=== PATIENT | male | born 1945 | race Caucasian/White ===

== ENCOUNTER 2021-04-17 18:03 | Inpatient (IN) | payer MEDICARE, BC ==
[~2021-04-17] VITALS: Ht 198.1 cm; Wt 64.4 kg
[2021-04-17] MEDS ORDERED: FAMO-132 PO (18:19)
[2021-04-17] MEDS ORDERED: CLON0.1T PO (18:19)
[2021-04-17] MEDS ORDERED: MIRT-93 PO (18:19)
[2021-04-17] MEDS ORDERED: DIVA125C2 PO (18:19)
[2021-04-17] MEDS ORDERED: TAMS-3 PO (18:19)
[2021-04-17] MEDS ORDERED: ENOX40DI SQ (18:19)
[2021-04-17] MEDS ORDERED: ZIPR20CA2 IM (18:19)
[2021-04-17] MEDS ORDERED: HYDR8TAB2 PO (18:19)
[2021-04-17] MEDS ORDERED: HYDR4TAB4 PO (18:19)
[2021-04-17] MEDS ORDERED: OLAN10TA3 PO (18:19)
--- NOTE | 2021-04-17 19:00 | NUR ---
Patient was seen bt . Lisandroails up x4. patient is confused
--- NOTE | 2021-04-17 19:19 | NUR ---
hand off report given to yousif PARADA
[2021-04-17] MEDS ORDERED: ZIPRASIDONE MESYLATE 20 MG VIAL IM ONE ×2 (19:45→19:59)
[2021-04-17] MEDS ORDERED: diphenhydrAMINE 50 MG/1 ML VIAL IM ONE (19:45)
[2021-04-17] MEDS ORDERED: diphenhydrAMINE 50 MG/1 ML VIAL ONE (19:59)
[2021-04-17 20:05] LABS: HEMATOCRIT 38.7 % (36.7-47.1); MEAN CORPUSCULAR HEMOGLOBIN 30.6 uug (23.8-33.4); MEAN CORPUSCULAR VOLUME 87.5 fL (73.0-96.2); PLATELET COUNT (AUTO) 177 K/uL (152-348)
[2021-04-17 20:09] LABS: CREATININE 0.8 mg/dL (0.6-1.3); POTASSIUM 3.3 mmol/L (3.5-5.1)
[2021-04-17 20:23] LABS: THYROID STIMULATING HORMONE 0.647 mIU/mL (0.358-3.740)
[2021-04-17 21:03] LABS: *BILIRUBIN,URIN 1+ (NEGATIVE); *BLOOD, URINE 1+ (NEGATIVE); *CLARITY,URINE CLEAR (CLEAR); *COLOR,URINE YELLOW (YELLOW); *KETONES,URINE 1+ (NEGATIVE); LEUKOCYTE ESTERASE ,URINE NEGATIVE (NEGATIVE); NITRITE, URINE POSITIVE (NEGATIVE); UGLUCOSE NEGATIVE (NEGATIVE)
--- NOTE | 2021-04-17 21:51 | NUR ---
Pt medically cleared by Dr. Craig.
--- NOTE | 2021-04-17 21:55 | NUR ---
Called Jimena Chaney [facility] for pt psych evaluation.
[2021-04-17 22:52] LABS: BACTERIA,URINE MANY /HPF (NONE SEEN); RBC,URINE 0-3 /HPF (0-3); SQUAMOUS EPITHELIAL CELL,UR NONE SEEN /HPF (NONE SEEN)
--- NOTE | 2021-04-17 23:00 | NUR ---
Jimena Chaney LCSW arrived to ER for pt psych evaluation.
--- NOTE | 2021-04-18 01:19 | NUR ---
Report given to Juliette PARADA M[facility].
[2021-04-18] MEDS ORDERED: CEFTRIAXONE 1 G VIAL IM ONE (02:00)
[2021-04-18] MEDS ORDERED: HALOPERIDOL LACTATE 5 MG/1 ML VIAL IM ONE (02:00)
[2021-04-18] MEDS ORDERED: diphenhydrAMINE 50 MG/1 ML VIAL IM ONE (02:00)
[2021-04-18] MEDS ORDERED: CEFTRIAXONE 1 G VIAL ONE (02:04)
[2021-04-18] MEDS ORDERED: HALOPERIDOL LACTATE 5 MG/1 ML VIAL ONE (02:04)
[2021-04-18] MEDS ORDERED: diphenhydrAMINE 50 MG/1 ML VIAL ONE (02:05)
[2021-04-18] MEDS ORDERED: LIDOCAINE HCL 1% 20 ML VIAL ONE (02:05)
[2021-04-18 02:50] VITALS: BP 143/72
[2021-04-18] MEDS ORDERED: MAG HYDROX/AL HYDROX/SIMETH 30 ML LIQUID UDC PO PRN (03:30)
[2021-04-18] MEDS ORDERED: BLOOD SUGAR DIAGNOSTIC 1 EACH STRIP VI ONE (03:30)
[2021-04-18] MEDS ORDERED: TEMAZEPAM 7.5 MG CAPSULE PO PRN (03:30)
[2021-04-18] MEDS ORDERED: CLONIDINE HCL 0.1 MG TABLET PO PRN (04:15)
--- NOTE | 2021-04-18 04:27 | NUR ---
GPS ADMISSION NOTE: Patient is a 76 year old patient , brought into the ER from [facility]. According to the patients daughter and the 5150 hold, this patient has been aggressive and hit his . Patient has been refusing medications, food and fluids at home. Upon face to face evaluation, the patient is unable to respond to staff. Poor eye contact, poor impulse control and obvious visual hallucinations . The patient has a temp of 99.1. The other VS are stable. Skin intact, turned and repositioned for comfort. Oral fluids offered , but patient refused. Safety stratiges in place. Monitoring for behavior escalation at this time. Noted that the patient is positive for a urine infection and received antibiotic IM in the ER.
[2021-04-18] MEDS: ACETAMINOPHEN 325 MG TABLET PO PRN (06:48)
--- NOTE | 2021-04-18 06:56 | NUR ---
Patients temp remained 99.0 despite cooling measures. Tylenol given crushed. Patient reluctant but took the medication with encouragement. Will continue to monitor.
[2021-04-18 08:00] VITALS: BP 99/61
--- NOTE | 2021-04-18 08:00 | NUR ---
recd patient in bed trying to get out , patient transfered to devika chair with 2 assist for safety, patient is deaf speaks farsi and confused refusing meds after crushed in applesauce as stated by daughter thats how he takes pills. patient very restless and has to be secured in devika chair constantly twitching throwing pillows and bath blankets .CONtinue to monitor for safety
[2021-04-18] MEDS ORDERED: TAMSULOSIN HCL 0.4 MG CAP.SR.24H PO SCH (09:00)
[2021-04-18] MEDS: OLANZAPINE 5 MG TABLET PO SCH ×2 (12:06→17:32)
[2021-04-18] MEDS: busPIRone 5 MG TABLET PO SCH ×3 (12:07→21:00)
[2021-04-18] MEDS: DIVALPROEX SPRINKLE 125 MG CAP.SPRINK PO SCH ×2 (17:31→21:00)
[2021-04-18 17:50] VITALS: BP 117/76
--- NOTE | 2021-04-18 17:55 | NUR ---
patients son brought in food from home to try help patient eat which patient ate more than he did all shift with family assist,, assisted as need with adls and safety patient remains anxious and restless
[2021-04-18 20:14] VITALS: BP 109/68
[2021-04-18] MEDS: TAMSULOSIN HCL 0.4 MG CAP.SR.24H PO SCH (21:00)
[2021-04-18] MEDS: OLANZAPINE 2.5 MG TABLET PO SCH (21:00)
[2021-04-18] MEDS: CEphaleXIN 500 MG CAPSULE PO SCH (21:52)
[2021-04-19] MEDS: CEphaleXIN 500 MG CAPSULE PO SCH ×3 (05:55→21:20)
--- NOTE | 2021-04-19 06:23 | NUR ---
GPS: REMAIN UNCOOPERATIVE WITH CARE. UNABLE TO AMBULATE.ASSISTED WITH ADL'S.REFUSED ALL HS PO MEDS.BUT TOOK AM PO ATB.ENCOURAGED PO INTAKE. SLEPT 3.45 HRS THROUGH THE MEDS. CONTINUE MONITOR FOR SAFETY.
[2021-04-19 08:11] LABS: HEMATOCRIT 37.7 % (36.7-47.1); MEAN CORPUSCULAR HEMOGLOBIN 30.7 uug (23.8-33.4); MEAN CORPUSCULAR VOLUME 87.8 fL (73.0-96.2); PLATELET COUNT (AUTO) 206 K/uL (152-348)
[2021-04-19] MEDS: DIVALPROEX SPRINKLE 125 MG CAP.SPRINK PO SCH ×3 (08:12→20:44)
[2021-04-19] MEDS: busPIRone 5 MG TABLET PO SCH ×3 (08:13→20:47)
[2021-04-19] MEDS: OLANZAPINE 5 MG TABLET PO SCH ×3 (08:13→17:20)
[2021-04-19 08:43] LABS: CREATININE 0.7 mg/dL (0.6-1.3)
[2021-04-19 08:48] LABS: CREATININE 0.7 mg/dL (0.6-1.3); MAGNESIUM 2.4 mg/dL (1.8-2.4); PHOSPHOROUS 3.6 mg/dL (2.5-4.9); POTASSIUM 3.4 mmol/L (3.5-5.1)
[2021-04-19 09:22] LABS: THYROID STIMULATING HORMONE 0.813 mIU/mL (0.358-3.740)
[2021-04-19] MEDS ORDERED: POTASSIUM CHLORIDE 20 MEQ TAB.PRT.SR PO ONE (10:30)
[2021-04-19] MEDS: ENSURE ENLIVE (VAN) 240 ML LIQUID PO SCH ×2 (13:14→18:22)
--- NOTE | 2021-04-19 16:31 | NUR ---
Received patient sleeping in his room. A/O X 1 to person. Pt. affect is confused, withdrawn, calm. Compliant with medications this morning. Ambulates with assistance, unsteady gait, lower extremities weakness. Reality orientation provided. Fall and safety precautions implemented.
[2021-04-19 18:45] VITALS: BP 104/61
[2021-04-19 20:00] VITALS: BP 115/55
[2021-04-19] MEDS: OLANZAPINE 2.5 MG TABLET PO SCH (20:43)
[2021-04-19] MEDS: TAMSULOSIN HCL 0.4 MG CAP.SR.24H PO SCH (20:44)
[2021-04-20] MEDS: CEphaleXIN 500 MG CAPSULE PO SCH ×3 (06:29→21:59)
[2021-04-20] MEDS: OLANZAPINE 5 MG TABLET PO SCH ×3 (09:00→16:52)
[2021-04-20] MEDS: ENSURE ENLIVE (VAN) 240 ML LIQUID PO SCH ×3 (09:00→17:42)
--- NOTE | 2021-04-20 11:35 | NUR ---
MYNOR Initial Discharge Plan: Pt currently resides at [address] [place] [address] with his , Meño. Per Jaelyn (DP) ([phone]), family is working with a certified senior media director (Osmel Yun [phone]) to also help with pt's discharge plan. Jaelyn asked SW to also find additional nursing facilities that will work for pt as pt cannot return back to his residence according to Jaelyn. MYNOR will continue to work with pt, family and MD to ensure a safe and proper discharge plan for the pt.
--- NOTE | 2021-04-20 11:36 | NUR ---
SW Admit Source: Pt currently resides at [address] [place] [address] with his , Meño. Per 5[address] hold, pt was brought to [facility] by ambulance from [facility] on 04/18/21 due to agitation and confusion. Per pt's daughter, Jaelyn (DPOA) ([phone]), family is working with a certified senior web developer (Osmel Yun [phone]) to also help with pt's discharge plan. Jaelyn asked SW to also find additional nursing facilities that will work for pt as pt cannot return back to his residence according to Jaelyn. MYNOR will continue to work with pt, family and MD to ensure a safe and proper discharge plan for the pt.
[2021-04-20 11:41] LABS: CREATININE 0.6 mg/dL (0.6-1.3); POTASSIUM 3.8 mmol/L (3.5-5.1)
--- NOTE | 2021-04-20 11:47 | NUR ---
Firearms Report: Health Records Technology Teacher completed and submitted a [employer] firearms report for 5150 a danger to others and gravely disabled adult certifications. A copy of report has been placed in patient chart.
--- NOTE | 2021-04-20 14:45 | NUR ---
Received patient sleeping in his room. A/O X 1 to person. Pt. affect is calm, cooperative, sociable, anxious at times. Refused medications this morning. Requires more than minimal assistance with ADL. Lower extremities weakness, unsteady gait. Fall and safety precautions implemented.
[2021-04-20 16:27] VITALS: BP 127/64
[2021-04-20 16:28] VITALS: BP 103/68
[2021-04-20] MEDS: DIVALPROEX SPRINKLE 125 MG CAP.SPRINK PO SCH ×2 (16:52→20:11)
[2021-04-20] MEDS: busPIRone 5 MG TABLET PO SCH ×2 (16:52→20:11)
[2021-04-20 20:00] VITALS: BP 110/58
[2021-04-20] MEDS: OLANZAPINE 2.5 MG TABLET PO SCH (20:12)
[2021-04-20] MEDS: TAMSULOSIN HCL 0.4 MG CAP.SR.24H PO SCH (20:23)
[2021-04-21] MEDS: CEphaleXIN 500 MG CAPSULE PO SCH ×3 (06:46→21:51)
[2021-04-21] MEDS: OLANZAPINE 5 MG TABLET PO SCH ×3 (09:17→17:21)
[2021-04-21] MEDS: busPIRone 5 MG TABLET PO SCH ×3 (09:17→21:50)
[2021-04-21] MEDS: DIVALPROEX SPRINKLE 125 MG CAP.SPRINK PO SCH ×3 (09:17→21:50)
[2021-04-21] MEDS: ENSURE ENLIVE (VAN) 240 ML LIQUID PO SCH ×3 (09:17→17:21)
--- NOTE | 2021-04-21 17:48 | NUR ---
GPS: PT ON ROXANNE-CHAIR FOR SAFETY. PT OBSERVED ABLE TO EAT independently AT DINNER TIME. PARTICIPATED WITH GROUP THERAPY. DENIES ANY PAIN OR DISCOMFORT. PT RESISTIVE TO CARE. COMPLIANT WITH MEDICATION. SON CAME TO ENCOURAGE PT ABOUT EATING WELL AND HAVE A GOOD EXERCISE. SON'S INQUIRY ANSWERED. SON MADE LANGUAGE TRANSLATION FOR PT ON A PAPER TO READ FOR EASY COMMUNICATION. WILL MONITOR PT.
[2021-04-21 19:52] VITALS: BP 147/79
[2021-04-21] MEDS ORDERED: OLANZAPINE 5 MG TABLET PO SCH (21:00)
[2021-04-21] MEDS: TAMSULOSIN HCL 0.4 MG CAP.SR.24H PO SCH (21:51)
[2021-04-22] MEDS: CEphaleXIN 500 MG CAPSULE PO SCH ×3 (06:00→21:15)
[2021-04-22 07:30] VITALS: BP 145/67
[2021-04-22 07:45] LABS: HEMATOCRIT 35.7 % (36.7-47.1); MEAN CORPUSCULAR HEMOGLOBIN 30.6 uug (23.8-33.4); MEAN CORPUSCULAR VOLUME 88.8 fL (73.0-96.2); PLATELET COUNT (AUTO) 260 K/uL (152-348)
[2021-04-22 07:59] LABS: BILIRUBIN,TOTAL 0.6 mg/dL (0.2-1.0); CREATININE 0.7 mg/dL (0.6-1.3); POTASSIUM 4.1 mmol/L (3.5-5.1); TOTAL PROTEIN, SERUM 6.1 g/dL (6.4-8.2)
[2021-04-22] MEDS: ENSURE ENLIVE (VAN) 240 ML LIQUID PO SCH ×3 (08:58→17:47)
[2021-04-22] MEDS: busPIRone 5 MG TABLET PO SCH ×4 (08:58→20:14)
[2021-04-22] MEDS: OLANZAPINE 5 MG TABLET PO SCH ×4 (08:58→20:14)
[2021-04-22] MEDS: DIVALPROEX SPRINKLE 125 MG CAP.SPRINK PO SCH ×3 (11:01→20:13)
[2021-04-22] MEDS: GABAPENTIN 100 MG CAPSULE PO SCH ×2 (12:27→17:46)
[2021-04-22 16:00] VITALS: BP 106/65
--- NOTE | 2021-04-22 16:59 | NUR ---
GPS: RECEIVED FAXED MESSAGE FROM [facility] ABOUT PT URINALYSIS, SENT RESULT TO [facility] THROUGH TEXT AND ORDERED WORKUP C&S. SPOKE WITH LOWELA FROM [facility] AND APPROVED ORDER.
[2021-04-22 20:00] VITALS: BP 112/73
[2021-04-22] MEDS: TAMSULOSIN HCL 0.4 MG CAP.SR.24H PO SCH (20:14)
--- NOTE | 2021-04-22 22:00 | NUR ---
Received patient in the hallway. he is noted confused, unable to have a meaningful conversation with this commercial loan underwriter. No aggressive bx noted at this time. he is able to comply with medication regiment, ADLs and diet at this time. V/S stable, he was given PO fluids and snacks. He is reassured for her safety. safety and fall precaution in place. will continue to monitor.
[2021-04-23] MEDS: CEphaleXIN 500 MG CAPSULE PO SCH ×3 (06:13→23:00)
[2021-04-23 07:30] VITALS: BP 103/55
[2021-04-23] MEDS: DIVALPROEX SPRINKLE 125 MG CAP.SPRINK PO SCH ×3 (08:28→20:43)
[2021-04-23] MEDS: OLANZAPINE 5 MG TABLET PO SCH ×4 (08:28→20:44)
[2021-04-23] MEDS: busPIRone 5 MG TABLET PO SCH ×4 (08:28→20:43)
[2021-04-23] MEDS: GABAPENTIN 100 MG CAPSULE PO SCH ×3 (08:28→17:40)
[2021-04-23] MEDS: ENSURE ENLIVE (VAN) 240 ML LIQUID PO SCH ×3 (08:29→17:41)
--- NOTE | 2021-04-23 09:43 | NUR ---
GPS: PT RECEIVED ON HALLWAY. DENIES PAIN OR DISCOMFORT. PSYCHIATRIST CAME TO SPEAK WITH PT BUT UNABLE TO COMPREHEND WITH CONVERSATION, EVEN WITH A FARSI SPEAKING DUMPMAN. PT ANSWER MADE NO SENSE. NO AGITATION AT THIS TIME.
[2021-04-23 16:00] VITALS: BP 112/63
[2021-04-23 20:00] VITALS: BP 108/65
[2021-04-23] MEDS: TAMSULOSIN HCL 0.4 MG CAP.SR.24H PO SCH (20:43)
[2021-04-24] MEDS: CEphaleXIN 500 MG CAPSULE PO SCH ×3 (06:16→22:08)
[2021-04-24 07:30] VITALS: BP 111/57
--- NOTE | 2021-04-24 08:45 | NUR ---
Gps/Ceramic Capacitor Processor- Patient was incontienent of large amount of urine, srong odor, patient was given partial bath in bed 2 staff assisting patient, tends to grab . OOB to devika-chair to eat breakfastm, was able to feed self after set up. Routine am meds was crushed with apple sauce , fluids offered, encouraged
[2021-04-24] MEDS: OLANZAPINE 5 MG TABLET PO SCH ×4 (09:16→20:46)
[2021-04-24] MEDS: DIVALPROEX SPRINKLE 125 MG CAP.SPRINK PO SCH ×3 (09:17→20:49)
[2021-04-24] MEDS: GABAPENTIN 100 MG CAPSULE PO SCH ×3 (09:17→16:36)
[2021-04-24] MEDS: ENSURE ENLIVE (VAN) 240 ML LIQUID PO SCH ×3 (09:17→16:37)
[2021-04-24] MEDS: busPIRone 5 MG TABLET PO SCH ×4 (09:17→20:48)
--- NOTE | 2021-04-24 10:04 | NUR ---
SW Contact: Pt's daughter Jaelyn (DPOA [phone]) notified SW that their family certified senior data modeler (Osmel [phone]) will be calling to be updated wit pt's discharge information. Osmel called SW to discuss pt's discharge plan. Osmel was grateful for our work and agreed with the SW"s discharge plan that was discussed with Dr. Reyes.
--- NOTE | 2021-04-24 13:10 | NUR ---
Gps/Mold Checker- Stayed up in his devika-chair during his lunch, fed self ind. Adequate intake, no discomfort, noted, anxious gets fidgety in his chair , attended his group therapy this am
[2021-04-24 16:51] VITALS: BP 117/59
[2021-04-24] MEDS: TAMSULOSIN HCL 0.4 MG CAP.SR.24H PO SCH (20:48)
[2021-04-24 20:52] VITALS: BP 121/69
[2021-04-25] MEDS: CEphaleXIN 500 MG CAPSULE PO SCH ×2 (05:51→15:22)
[2021-04-25 07:36] VITALS: BP 103/50
[2021-04-25] MEDS: DIVALPROEX SPRINKLE 125 MG CAP.SPRINK PO SCH ×3 (10:19→21:30)
[2021-04-25] MEDS: OLANZAPINE 5 MG TABLET PO SCH ×4 (10:19→21:30)
[2021-04-25] MEDS: busPIRone 5 MG TABLET PO SCH ×4 (10:20→21:30)
[2021-04-25] MEDS: ENSURE ENLIVE (VAN) 240 ML LIQUID PO SCH ×3 (10:20→16:36)
[2021-04-25] MEDS: GABAPENTIN 100 MG CAPSULE PO SCH ×3 (10:20→16:34)
--- NOTE | 2021-04-25 15:30 | NUR ---
Gps/Artillery Or Naval Gunfire Observer- Incontienent of urine, restless, fidgety, kept up in his devika-chair, by the nurses station, needed max assist with at least 2-3 staff providing his care/hygine, patient tries to hit staff, kicks , uncooperative during his care . Tried to redirect in simple Palauan, has flash cards written in Farsi w/ Palauan translation, appeared to not helping r/t confusion.
[2021-04-25 16:47] VITALS: BP 96/63
[2021-04-25 20:00] VITALS: BP 114/64
[2021-04-25] MEDS: TAMSULOSIN HCL 0.4 MG CAP.SR.24H PO SCH (21:30)
[2021-04-25] MEDS: LORAZEPAM 0.5 MG TABLET PO PRN (22:30)
[2021-04-25] MEDS ORDERED: REMEDY ESSENTIAL ZINC PASTE 113 GM TOP SCH (23:45)
--- NOTE | 2021-04-26 04:45 | NUR ---
Received to care, up in devika chair, talking to self, restless, at times. Compliant with medications. PRN ativan was given at 2230, and he was assited to bed around an hour after that. He slept fairly well, until around 0400, when he was trying to get out of bd. His diaper was changed, but he remained restless, so he was assisted up in the devika chair, for safety. He is now calmer, talking quietly to himself, no distress noted.
[2021-04-26] MEDS ORDERED: REMEDY ESSENTIAL ZINC PASTE 113 GM TOP PRN ×2 (05:30→05:31)
[2021-04-26 07:30] VITALS: BP 114/79
[2021-04-26] MEDS: GABAPENTIN 100 MG CAPSULE PO SCH ×3 (08:37→17:17)
[2021-04-26] MEDS: DIVALPROEX SPRINKLE 125 MG CAP.SPRINK PO SCH ×3 (08:45→21:02)
[2021-04-26] MEDS: OLANZAPINE 5 MG TABLET PO SCH ×4 (08:46→21:02)
[2021-04-26] MEDS: ENSURE ENLIVE (VAN) 240 ML LIQUID PO SCH ×3 (08:47→17:18)
[2021-04-26] MEDS: busPIRone 5 MG TABLET PO SCH ×4 (08:47→21:02)
[2021-04-26] MEDS: REMEDY ESSENTIAL ZINC PASTE 113 GM TOP SCH ×2 (09:00→21:05)
[2021-04-26 16:00] VITALS: BP 129/83
--- NOTE | 2021-04-26 21:00 | NUR ---
Received patient in his room in bed sleeping but he is easily arousable. Patient noted confused, mood is low, affect is flat. speech is disorganized. He is unable to have a meaningful conversation with this typewriter assembly and parts inspector. He is noted compliant with medication regiment diet and care. PO fluids and snacks were given. V/S stable. patient is reassured for his safety. safety and fall precautions in place. will continue to monitor.
[2021-04-26] MEDS: TAMSULOSIN HCL 0.4 MG CAP.SR.24H PO SCH (21:02)
[2021-04-27 07:42] VITALS: BP 133/50
[2021-04-27] MEDS: busPIRone 5 MG TABLET PO SCH ×5 (08:00→22:42)
[2021-04-27] MEDS: DIVALPROEX SPRINKLE 125 MG CAP.SPRINK PO SCH (08:00)
[2021-04-27] MEDS: ENSURE ENLIVE (VAN) 240 ML LIQUID PO SCH ×4 (09:00→16:43)
[2021-04-27] MEDS: OLANZAPINE 5 MG TABLET PO SCH ×5 (09:00→22:41)
[2021-04-27] MEDS: GABAPENTIN 100 MG CAPSULE PO SCH ×4 (09:00→16:43)
[2021-04-27] MEDS: REMEDY ESSENTIAL ZINC PASTE 113 GM TOP SCH ×2 (09:11→21:00)
[2021-04-27] MEDS ORDERED: GABAPENTIN 100 MG CAPSULE PO SCH (13:00)
[2021-04-27] MEDS ORDERED: GABAPENTIN 300 MG CAPSULE PO SCH ×2 (13:00)
--- NOTE | 2021-04-27 13:19 | NUR ---
GPS: Nursing Notes: Thought Disorder: Patient is awake and responding to his name, impaired judgment , resistant with nursing care, needs at least 2 staff to change his wet diaper, present in therapeutic groups, but minimal interactions, redirected and reoriented during shift, confused, disoriented, disorganized, episodes of disrobing in the hallway, unable to formulate a viable plan for self care, continue to monitor for safety, continue with treatment plan.
[2021-04-27 16:46] VITALS: BP 103/61
[2021-04-27] MEDS: MAGNESIUM HYDROXIDE 30 ML LIQUID UDC PO PRN (18:34)
[2021-04-27 20:00] VITALS: BP 136/76
[2021-04-27] MEDS: TAMSULOSIN HCL 0.4 MG CAP.SR.24H PO SCH (22:42)
[2021-04-27] MEDS: LORAZEPAM 0.5 MG TABLET PO PRN (23:55)
--- NOTE | 2021-04-28 02:58 | NUR ---
Received this evening, up in devika chair, at nurses desk, for safety, talking to self. He remains confused and oriented to person only. Compliant with medications, and was able to eat a half a tuna sandwich on his own, but able to drink a whole bottle of ensure himself, a glass at a time. PRN Ativan was given at 2355, and he was assisted to bed, at around 0200, and went right to sleep, and continues to sleep. No distress noted.
[2021-04-28] MEDS: LORAZEPAM 0.5 MG TABLET PO PRN ×2 (07:39→23:12)
[2021-04-28 08:00] VITALS: BP 98/58
[2021-04-28] MEDS: busPIRone 5 MG TABLET PO SCH ×4 (08:32→21:38)
[2021-04-28] MEDS: GABAPENTIN 100 MG CAPSULE PO SCH ×3 (08:32→16:35)
[2021-04-28] MEDS: OLANZAPINE 5 MG TABLET PO SCH ×4 (08:32→21:38)
[2021-04-28] MEDS: REMEDY ESSENTIAL ZINC PASTE 113 GM TOP SCH ×2 (08:33→21:38)
[2021-04-28] MEDS: ENSURE ENLIVE (VAN) 240 ML LIQUID PO SCH ×3 (08:33→16:35)
[2021-04-28] MEDS: ACETAMINOPHEN 325 MG TABLET PO PRN (12:15)
--- NOTE | 2021-04-28 13:22 | NUR ---
GPS: Nursing Notes: Destructive Behavior to Others: Patient is awake and responding to his name, gets easily anxious when assisting him with ADL's, resistant with nursing care, needs 2 staff to change his wet diaper, disorganized, impaired judgment, poor insight, unable to formulate a viable plan for self care, continue to monitor for safety, continue with treatment plan.
[2021-04-28 16:00] VITALS: BP 109/63
[2021-04-28] MEDS: MAGNESIUM HYDROXIDE 30 ML LIQUID UDC PO PRN (18:15)
[2021-04-28 20:16] VITALS: BP 119/76
[2021-04-28] MEDS: TAMSULOSIN HCL 0.4 MG CAP.SR.24H PO SCH (21:38)
--- NOTE | 2021-04-29 04:22 | NUR ---
Received to care, up in devika chair for safety, talking to self, restless at times. Compliant with medications. Assisted with food and fluids (ate a whole tuna sandwich, and drank a bottle of ensure, and a glass of water). PRN Ativan was given at 2317. He was assisted to bed around 2345, but became combative during diaper change, attempting to bite, punch, and kick, requiring 3 staff to assist him. He calmed down after care was completed, and went to sleep quickly. As of now, he is sleeping well. Was cooperative during rounds, no distress or aggression noted.
[2021-04-29 07:30] VITALS: BP 128/71
[2021-04-29] MEDS: ENSURE ENLIVE (VAN) 240 ML LIQUID PO SCH ×3 (09:00→17:45)
[2021-04-29] MEDS: busPIRone 5 MG TABLET PO SCH ×4 (12:02→20:13)
[2021-04-29] MEDS: REMEDY ESSENTIAL ZINC PASTE 113 GM TOP SCH ×2 (12:03→20:14)
[2021-04-29] MEDS: OLANZAPINE 5 MG TABLET PO SCH ×4 (12:03→20:13)
[2021-04-29] MEDS: GABAPENTIN 100 MG CAPSULE PO SCH ×3 (12:03→17:45)
--- NOTE | 2021-04-29 12:07 | NUR ---
MYNOR Family Contact: Pt's daughter, Jaelyn ([phone]) contacted MYNOR and asked her to check 3 additional placements ([facility], [facility], and [facility]). Jaelyn was informed that if her desired locations deny the pt, we have to move forward to with [facility] who has accepted the pt upon discharge or she will receive a letter of denial since there is a discharge order for the pt. Jaelyn reported that she does not want it to get there and she will agree with [facility] if the 3 additional locations deny.
--- NOTE | 2021-04-29 14:03 | NUR ---
MYNOR Family Contact Update: MYNOR contacted pt's daughter (DPKAMILLA) ([phone]) and updated Jaelyn that [facility] denied the pt for admission to their facility per Jaelyn's request. Jaelyn is now agreeable with the discharge plan for the pt to discharge to [facility] on 04/30/21.
[2021-04-29 20:00] VITALS: BP 105/66
[2021-04-29] MEDS: TAMSULOSIN HCL 0.4 MG CAP.SR.24H PO SCH (20:13)
--- NOTE | 2021-04-29 21:00 | NUR ---
received patient in the hallway sitting in a apryl chair near the nursing station for safety, patient is noted awake, he is confused. and he is unable to have a meaningful conversation with this telegraphic typewriter installer. patient continue complaint with medication regiment diet and care. Patient is reassured for his safety, safety and fall precautions are in place. V/S stable. He was provided with snacks and PO fluids. will continue to monitor.
[2021-04-29] MEDS: LORAZEPAM 0.5 MG TABLET PO PRN (21:40)
[2021-04-30 08:18] VITALS: BP 112/52
[2021-04-30] MEDS ORDERED: MIRALAX 17 GM POWD.PACK PO SCH (09:00)
[2021-04-30] MEDS: busPIRone 5 MG TABLET PO SCH ×2 (09:27→12:29)
[2021-04-30] MEDS: OLANZAPINE 5 MG TABLET PO SCH ×2 (09:27→12:29)
[2021-04-30] MEDS: GABAPENTIN 100 MG CAPSULE PO SCH ×2 (09:27→12:29)
[2021-04-30] MEDS: REMEDY ESSENTIAL ZINC PASTE 113 GM TOP SCH (09:28)
[2021-04-30] MEDS: ENSURE ENLIVE (VAN) 240 ML LIQUID PO SCH ×2 (09:28→12:29)
--- NOTE | 2021-04-30 10:32 | NUR ---
MYNOR Discharge Note: Pt will be discharged to [facility] [place] [address] ([phone]) via Ambulance transportation at 1PM. MYNOR spoke with admin coordinator, Sommer ([phone]) at the facility who states they are ready to accept the patient today. Pt is aware and agreeable with discharge plans. Pts daughter, Jaelyn (DPOA [phone]) is aware and agreeable with the discharge plan. Pt is alert and oriented x0, is unable to plan for self-care at this time; however, is willing to accept care at SNF. Pt denies any suicidal or homicidal ideation. Pt will follow-up at the facility with Psychiatrist, Dr. Reyes and Firestopper Installer, Dr. Johnson. Pt presents with calm mood and congruent affect.
--- NOTE | 2021-04-30 12:58 | NUR ---
Received patient sleeping in his room. A/O X 1 to person. Pt. is calm, cooperative, withdrawn. Compliant with medications. Total care. Emotional support provided. Fall and safety precautions implemented.
--- NOTE | 2021-04-30 13:01 | NUR ---
Received orders from Dr. Reyes to discharge this patient. [facility] is driving patient to [facility]. Patient left the unit at 13:00. Patient denies SI/HI AH/VH, SOB, or any pain or discomfort. All belongings returned to patient. Pt. is encourage to verbalize concerns. Fall and safety precautions implemented.
== END 2021-04-30 13:00 | DRG 885 ==
LOC: ER 18:04 → GPS 04-18 02:17
PROVIDERS: ADMIT Psychiatry & Neurology Psychosomatic Medicine; ATTEND Nurse Practitioner Acute Care
DX: F29 Unspecified psychosis not due to a substance or known physiological condition (principal); F01.50 Vascular dementia, unspecified severity, without behavioral disturbance, psychotic disturbance, mood disturbance, and anxiety; G93.41 Metabolic encephalopathy; E44.0 Moderate protein-calorie malnutrition; N39.0 Urinary tract infection, site not specified; E87.0 Hyperosmolality and hypernatremia; Z68.1 Body mass index [BMI] 19.9 or less, adult; F02.80 Dementia in other diseases classified elsewhere, unspecified severity, without behavioral disturbance, psychotic disturbance, mood disturbance, and anxiety; K21.9 Gastro-esophageal reflux disease without esophagitis; N40.0 Benign prostatic hyperplasia without lower urinary tract symptoms; F42.9 Obsessive-compulsive disorder, unspecified; G31.09 Other frontotemporal neurocognitive disorder; F25.9 Schizoaffective disorder, unspecified; F41.9 Anxiety disorder, unspecified; E88.09 Other disorders of plasma-protein metabolism, not elsewhere classified; E87.6 Hypokalemia; B95.7 Other staphylococcus as the cause of diseases classified elsewhere
CPT/HCPCS: 36415; 80164; 83735; 83921; 84100; 84443; 85025; 87077; 87086; 93005; 97161; C1758; J0696; J1200; J1630; J3486; J3490